=== PATIENT | male | born 2000 | race Caucasian/White ===

== ENCOUNTER 2022-11-15 07:29 | Emergency (ER) | payer SELFPAY ==
[~2022-11-15] VITALS: Ht 177.8 cm; Wt 100.0 kg
[2022-11-15 09:00] VITALS: BP 106/82
== END 2022-11-15 10:03 | disposition home or self-care (01) ==
LOC: ER 07:29
DX: R41.82 Altered mental status, unspecified (principal); F17.200 Nicotine dependence, unspecified, uncomplicated; F20.9 Schizophrenia, unspecified
CPT/HCPCS: 99281

== ENCOUNTER 2025-09-24 01:29 | Emergency (ER) | payer OTHER ==
[~2025-09-24] VITALS: Ht 180.3 cm; Wt 118.0 kg
[2025-09-24] MEDS: HALOPERIDOL LACTATE 5MG/ML VIAL IM ONE (02:27)
[2025-09-24] MEDS: LORAZEPAM 2MG/ML UD SYRINGE IM NR (02:27)
[2025-09-24 02:38] LABS: BASOPHILS % 0.5 % (0.0-2.0); EOSINOPHILS % 0.6 % (0.0-5.0); HEMATOCRIT. 46.8 % (42.0-52.0); HEMOGLOBIN. 15.3 g/dL (14.0-18.0); LYMPHOCYTES % 17.6 % (20.0-50.0); MEAN PLATELET VOLUME 9.2 fl (7.4-10.4); MONOCYTES % 6.4 % (2.0-8.0); NEUTROPHILS % 74.9 % (40.0-76.0); PLATELET 183 x1000/uL (130-400); RED BLOOD CELL COUNT 5.72 mill/uL (4.7-6.1); RED CELL DISTRIBUTION WIDTH 14.5 % (11.6-14.6)
[2025-09-24 02:50] LABS: CREATININE 0.9 mg/dL (0.6-1.3); UREA NITROGEN BLOOD 10 mg/dL (9-23)
[2025-09-24 02:51] LABS: ETHANOL BLOOD < 10 mg/dL (<10)
[2025-09-24 02:52] LABS: ASPARTATE AMINOTRANSFERASE 56 IU/L (<34); BILIRUBIN DIRECT 0.2 mg/dL (<=3.0); BILIRUBIN TOTAL 0.5 mg/dL (0.1-1.0); PROTEIN TOTAL 6.2 g/dL (6.0-8.3)
[2025-09-24 02:56] LABS: CLARITY URINE CLEAR (CLEAR); COLOR URINE YELLOW (YELLOW); GLUCOSE URINE NEGATIVE (NEGATIVE); KETONES URINE NEGATIVE (NEGATIVE); LEUKOCYTE ESTERASE URINE NEGATIVE (NEGATIVE); NITRITE URINE NEGATIVE (NEGATIVE); OCCULT BLOOD URINE 1+ (NEGATIVE); PH URINE 6.5 (4.5-8.0); PROTEIN URINE NEGATIVE (NEGATIVE); SPECIFIC GRAVITY URINE 1.020 (1.005-1.030); UROBILINOGEN URINE 0.2 E.U./dL (0.2-1.0)
[2025-09-24 03:00] VITALS: O2SAT 98
[2025-09-24 03:20] LABS: *AMPHETAMINES SCREEN URINE NEGATIVE (NEGATIVE); *BARBITURATES SCREEN URINE NEGATIVE (NEGATIVE); *BENZODIAZEPINES SCREEN URINE NEGATIVE (NEGATIVE); *COCAINE SCREEN URINE NEGATIVE (NEGATIVE); METHADONE URINE SCREEN NEGATIVE (NEGATIVE); OPIATES URINE SCREEN NEGATIVE (NEGATIVE); PHENCYCLIDINE URINE SCREEN NEGATIVE (NEGATIVE)
[2025-09-24 03:21] LABS: CANNABINOID URINE SCREEN PRESUMPTIVE POSITIVE (NEGATIVE); ECSTASY MDMA SCREEN URINE NEGATIVE (NEGATIVE)
[2025-09-24 05:53] LABS: SQUAMOUS EPITHELIAL CELL URINE NONE SEEN /lpf (RARE/1+)
[2025-09-24 05:55] LABS: BACTERIA URINE NONE SEEN; WBC URINE 15-25 /hpf (0-2)
[2025-09-24 07:49] VITALS: BP 136/70; PULSE 85; RESP 18; TEMP 36.8; O2SAT 100
== END 2025-09-24 08:08 ==
LOC: ER 01:29
DX: R46.2 Strange and inexplicable behavior (principal); I10 Essential (primary) hypertension; Z79.899 Other long term (current) drug therapy; Z20.822 Contact with and (suspected) exposure to COVID-19
CPT/HCPCS: 80076; 80305; 80048; 81003; 80307; 80329; 80320; 85025; 87086; 36415; 93005; 96372; 99285; 87426; J1630; J2060; Z7610; G0480

== ENCOUNTER 2025-10-21 15:41 | Emergency (ER) | payer OTHER ==
[~2025-10-21] VITALS: Ht 182.9 cm; Wt 118.0 kg
[2025-10-21 15:43] VITALS: O2SAT 99
[2025-10-21 18:22] VITALS: BP 155/78; PULSE 92; RESP 16; TEMP 36.3; O2SAT 99
== END 2025-10-21 18:25 | disposition home or self-care (01) ==
LOC: ER 15:41
DX: F41.9 Anxiety disorder, unspecified (principal); I10 Essential (primary) hypertension; F31.9 Bipolar disorder, unspecified; F20.9 Schizophrenia, unspecified; F12.90 Cannabis use, unspecified, uncomplicated; Z91.148 Patient's other noncompliance with medication regimen for other reason
CPT/HCPCS: 99283